=== PATIENT | male | born 1985 | race African-American/Black ===

== ENCOUNTER 2016-11-20 09:21 | Emergency (ER) | payer SELFPAY ==
[~2016-11-20] VITALS: Ht 177.8 cm; Wt 90.0 kg
[~2016-11-20 09:21] MED LIST: NYST1000 SWISH-SPIT
[2016-11-20 09:23] VITALS: BP 136/81; PULSE 62; RESP 14; TEMP 98; O2SAT 100
== END 2016-11-20 11:35 | disposition left against medical advice (07) ==
LOC: NED 09:21
DX: K08.89 Other specified disorders of teeth and supporting structures (principal)
CPT/HCPCS: 99281

== ENCOUNTER 2017-05-14 20:40 | Emergency (ER) | payer SELFPAY ==
[2017-05-14 20:43] VITALS: BP 176/97; PULSE 126; RESP 20; TEMP 99.1; O2SAT 98
[2017-05-14] MEDS ORDERED: SODIUM CHLOR 0.9% 1000 ML INJ 1,000 ML IV ONE ×2 (20:56→22:30)
[2017-05-14] MEDS ORDERED: SODIUM CHLORIDE 0.9% FLUSH 10 ML FLUSH IVF PRN (21:00)
[2017-05-14] MEDS ORDERED: LORazepam 2 MG/ML VIAL IVP ONE (21:00)
[2017-05-14 21:05] VITALS: BP 172/91; PULSE 94; RESP 18; O2SAT 100
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
[2017-05-14 21:27] LABS: AUTOMATED NEUTROPHIL # 6.5 TH/MM3 (1.8-7.7); BASOPHIL % 0.4 % (0.0-2.0); EOSINOPHIL # 0.1 TH/MM3 (0-0.4); EOSINOPHIL % 0.8 % (0.0-4.0); HEMATOCRIT 45.9 % (39.0-51.0); HEMO FLAGS DIFF FINAL; LYMPH % 24.4 % (9.0-44.0); LYMPHOCYTE # 2.4 TH/MM3 (1.0-4.8); MEAN CELL VOLUME 78.7 FL (80.0-100.0); MEAN CORPUSCULAR HEMOGLOBIN 25.7 PG (27.0-34.0); MEAN CORPUSCULAR HGB CONC 32.7 % (32.0-36.0); MONO % 8.5 % (0.0-8.0); NEUT % 65.9 % (16.0-70.0); PLATELET COUNT 225 TH/MM3 (150-450); RED BLOOD COUNT 5.84 MIL/MM3 (4.50-5.90); RED CELL DISTRIBUTION WIDTH 13.2 % (11.6-17.2); WHITE BLOOD COUNT 9.8 TH/MM3 (4.0-11.0)
[2017-05-14 21:32] VITALS: BP 153/91; PULSE 85; RESP 16; O2SAT 100
[2017-05-14 21:36] LABS: CHLORIDE 101 MEQ/L (98-107); POTASSIUM 3.4 MEQ/L (3.5-5.1); SODIUM (NA) 136 MEQ/L (136-145)
[2017-05-14 21:40] LABS: ANION GAP 8 MEQ/L (5-15); BICARBONATE 26.8 MEQ/L (21.0-32.0); BLOOD UREA NITROGEN 9 MG/DL (7-18)
[2017-05-14 21:41] LABS: APTT (PATIENT) 25.9 SEC (24.3-30.1); PROTHROMBIN TIME - PATIENT 11.6 SEC (9.8-11.6)
[2017-05-14 21:43] LABS: ALT (GPT) 31 U/L (12-78); AST (GOT) 19 U/L (15-37); GLOMERULAR FILTRATION RATE 117 ML/MIN (>89)
[2017-05-14 21:44] LABS: TOTAL BILIRUBIN ADULT 0.2 MG/DL (0.2-1.0)
[2017-05-14 21:45] LABS: ALKALINE PHOSPHATASE 81 U/L (45-117); CREATINE KINASE 425 U/L (39-308)
[2017-05-14 21:55] LABS: ALCOHOL LESS THAN 3 MG/DL (0-5)
[2017-05-14 21:59] VITALS: BP 156/80; PULSE 81; RESP 16; O2SAT 100
[2017-05-14 22:08] LABS: CKMB 2.7 NG/ML (0.5-3.6)
[2017-05-14 22:52] LABS: ACETAMINOPHEN LESS THAN 2.0 MCG/ML (10.0-30.0)
[2017-05-14 22:59] LABS: BLOOD, URINE NEG (NEG); GLUCOSE,URINE NEG (NEG); KETONE, URINE NEG (NEG); NITRITE,URINE NEG (NEG); PH, URINE 7.5 (5.0-8.5)
[2017-05-14 23:11] LABS: RBC, URINE 0-2 /hpf (0-3); SQUAMOUS EPITHELIAL CELL URINE 0-5 /hpf (0-5); URINE COLOR YELLOW (YELLW/STRAW); WBC, URINE 0-2 /hpf (0-5)
[2017-05-14 23:12] LABS: COMMENT (UR) CULT NOT INDICATED; CULTURE IF INDICATED CULT NOT INDICATED
[2017-05-14 23:29] VITALS: BP 158/90; PULSE 81; RESP 16; O2SAT 100
--- NOTE | 2017-05-15 11:37 | EKG ---
Date Performed: 05/14/2017 Time Performed: 20:51:39 PTAGE: 31 years EKG: SINUS TACHYCARDIA NONSPECIFIC T-WAVE ABNORMALITY ABNORMAL RHYTHM ECG INTERPRETATION BASED O N A DEFAULT AGE OF 41 YEARS PREVIOUS TRACING : 11/28/2015 05.50 Nonspecific T-wave abnormality new since the prior tr acing. DOCTOR: Chano Bah Interpretating Date/Time 05/15/2017 11:35:42
== END 2017-05-14 23:51 | disposition home or self-care (01) ==
LOC: PHED 20:40
DX: T43.601A Poisoning by unspecified psychostimulants, accidental (unintentional), initial encounter (principal); R94.31 Abnormal electrocardiogram [ECG] [EKG]; Z72.0 Tobacco use; Z86.59 Personal history of other mental and behavioral disorders
CPT/HCPCS: 80053; 80307; 81001; 82550; 82552; 84484; 85025; 85610; 85730; 93005; 96361; 96374; 99284; J2060; J7030